=== PATIENT | female | born 1965 | race Caucasian/White ===

== ENCOUNTER 2018-05-22 18:37 | Inpatient (IN) | END 2018-05-27 13:20 | disposition home or self-care (01) | DRG 742 ==

== ENCOUNTER 2018-07-28 12:29 | Emergency (ER) | END 2018-07-28 16:40 | disposition home or self-care (01) ==

== ENCOUNTER 2018-08-11 14:55 | Emergency (ER) | payer OTHER ==
[~2018-08-11] VITALS: Ht 162.6 cm; Wt 67.9 kg
[~2018-08-11 14:55] MED LIST: CEPH-443 PO; FER325 PO; SULF1TAB31 PO
[2018-08-11 15:02] VITALS: BP 135/63; PULSE 94; RESP 20; Ht 162.6 cm; Wt 67.9 kg
--- NOTE | 2018-08-11 16:05 | ERD ---
ER Documentation Chief Complaint Chief Complaint painful non healing wounds x 1 month - pending referral to specialist HPI 52-year-old female with history of anemia, presents to the emergency department, complaining of worsening of generalized blistering rash for 1 month. The patient is waiting for a referral. The patient denies fevers, no chills. No treatment attempted at this time. ROS All systems reviewed and are negative except as per history of present illness. Medications Home Meds Active Scripts Morphine Sulfate* (Ms Contin*) 15 Mg Tablet.sa, 15 MG PO Q12, #10 TAB Prov:AUNDREA MILLS MD 08/11/18 Prednisone* (Prednisone*) 20 Mg Tab, 60 MG PO DAILY for 5 Days, TAB Prov:AUNDREA MILLS MD 08/11/18 Sulfamethoxazole/Trimethoprim* (Bactrim Ds* Tablet) 1 Each Tablet, 1 TAB PO BID for skin infection for 7 Days, #14 TAB Prov:MAO BAILEY DO 07/28/18 Cephalexin* (Keflex*) 500 Mg Capsule, 500 MG PO Q8 for skin infection for 7 Days, #21 CAP Prov:MAO BAILEY DO 07/28/18 Ferrous Sulfate* (Ferrous Sulfate*) 325 Mg Tabec, 325 MG PO BID for 30 Days, #90 TAB 5 Refills Prov:TATIANA MARI MD 05/27/18 Allergies Allergies: Coded Allergies: No Known Allergy (Verified , 08/11/18) PMhx/Soc 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 Neck: Full range of motion. No meningismus. Resp: Clear to auscultation bilaterally Cardio: Regular rate and rhythm, no murmurs Abd: Soft, non tender, non distended. Normal bowel sounds Skin: Multiple tenths bulla on an erythematous base, with some areas of erosion with yellowish crust involving the oral mucosa, upper extremities, trunk and back. Back: No midline or flank tenderness Ext: No cyanosis, or edema Neur: Awake and alert Psych: Normal Mood and Affect Results 24 hrs Current Medications Medications Dose Sig/Pako Start Time Status Last (Trade) Ordered Route PRN Stop Time Admin Dose Reason Admin 10 mg ONCE ONCE 08/11/18 DC 08/11/18 Dexamethasone IV 16:30 16:43 (Decadron) 08/11/18 16:37 Morphine 10 mg ONCE ONCE 08/11/18 DC 08/11/18 Sulfate PO 16:30 16:43 (morphine) 08/11/18 16:37 Procedures/MDM Vital signs stable, Differential diagnosis include but not limited to: Impetigo, tinea, psoriasis, heat rash, contact dermatitis, viral exanthema, seborrheic dermatitis, scabies, acute allergic reaction, medication side effect. Physical examination and clinical presentation consistent most likely with bullous pemphigoid. Clinical impression discussed with the patient who agree with management. The patient is stable to be treated outpatient and will be discharged home. Some side effects of prescribed medications (skin atrophy, nausea, vomiting, diarrhea, interactions with other medications) were reviewed. The patient needs a follow up with the primary care provider in the next 48h. If symptoms persist, worsen or new symptoms develop, then patient should return to the ED immediately. Instructions explained and given directly by me with acknowledgment and demonstrated understanding. Disclaimer: Inadvertent spelling and grammatical errors are likely due to EHR/dictation software use and do not reflect on the overall quality of patient care. Also, please note that the electronic time recorded on this note does not necessarily reflect the actual time of the patient encounter. Departure Diagnosis: Primary Impression: Bullous pemphigoid Condition: Stable Additional Instructions: Thank you very much for allowing us to participate in your care. Your health and safety is our top priority at [facility]. Call your primary care doctor TOMORROW for an appointment during the next 2-4 days and bring all the information and medications prescribed. Have prescriptions filled and follow precisely the directions on the label. If the symptoms get worse and your provider is unavailable, return to the Emergency Department immediately. AUNDREA MILLS MD Aug 11, 2018 16:05
[2018-08-11] MEDS ORDERED: morphine LIQ (10 MG/5 ML) CUP PO ONE (16:30)
[2018-08-11] MEDS ORDERED: DEXAMETHASONE 10 MG/ML 1 ML INJ IV ONE (16:30)
[2018-08-11] MEDS ORDERED: PRED20TA PO (17:14)
[2018-08-11] MEDS ORDERED: MORP15TA92 PO (17:16)
== END 2018-08-11 17:29 | disposition home or self-care (01) ==
LOC: FTE 14:55
DX: L12.0 Bullous pemphigoid (principal); J45.909 Unspecified asthma, uncomplicated
CPT/HCPCS: 36415; 96374; 99284; J1100

== ENCOUNTER 2018-08-18 12:46 | Emergency (ER) | payer OTHER ==
[~2018-08-18] VITALS: Wt 68.3 kg
[~2018-08-18 12:46] MED LIST changes: +MORP15TA92 PO; +PRED20TA PO
--- NOTE | 2018-08-18 14:30 | ERD ---
ER Documentation Chief Complaint Chief Complaint SKIN BLISTERS HPI The patient is a 52-year-old female, presenting to the ER because of worsening chronic skin Daisy for the last 2 months, now complains of skin lesion inside her mouth. She was seen in the ER about 7 days ago, treated with prednisone for possible bullous pemphigus and advised her to follow-up with her manager beverage. She has not been able to see a manager beverage, seen by her physician today who sent her to the ER for further evaluation. She denies fever, chills, neck pain, chest pain, dyspnea, abdominal pain, vomiting. She does not smoke, drinks socially Past medical history: Asthma, anemia Past surgical history: Abdominal tumor, details unclear ROS All systems reviewed and are negative except as per history of present illness. Medications Home Meds Active Scripts Azithromycin* (Zithromax*) 250 Mg Tablet, 250 MG PO .ZPACK DIRECTED, #6 TAB TAKE 500 MG (2 TABS) THE FIRST DAY THEN 250 MG (1 TAB) DAYS 2-5 Prov:MAO MIRANDA MD 08/18/18 Amoxicillin/Potassium Clav (Amox-Clav 875-125 mg Tablet) 875-125 mg Tab, 1 TAB PO BID for 10 Days, #20 TAB Prov:MAO MIRANDA MD 08/18/18 Prednisone* (Prednisone*) 20 Mg Tab, 60 MG PO DAILY for 7 Days, TAB Prov:MAO MIRANDA MD 08/18/18 Discontinued Scripts Morphine Sulfate* (Ms Contin*) 15 Mg Tablet.sa, 15 MG PO Q12, #10 TAB Prov:AUNDREA MILLS MD 08/11/18 Prednisone* (Prednisone*) 20 Mg Tab, 60 MG PO DAILY for 5 Days, TAB Prov:AUNDREA MILLS MD 08/11/18 Sulfamethoxazole/Trimethoprim* (Bactrim Ds* Tablet) 1 Each Tablet, 1 TAB PO BID for skin infection for 7 Days, #14 TAB Prov:MAO BAILEY DO 07/28/18 Cephalexin* (Keflex*) 500 Mg Capsule, 500 MG PO Q8 for skin infection for 7 Days, #21 CAP Prov:MAO BAILEY DO 07/28/18 Ferrous Sulfate* (Ferrous Sulfate*) 325 Mg Tabec, 325 MG PO BID for 30 Days, #90 TAB 5 Refills Prov:TATIANA WEEKS MD 05/27/18 Allergies Allergies: Coded Allergies: No Known Allergy (Verified , 08/18/18) PMhx/Soc History of Surgery: 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 Head: Atraumatic. Eyes: Normal Conjunctiva. ENT: Normal External Ears, Nose and Mouth.Oral mucosa with skin lesions Neck: Full range of motion. No meningismus. Resp: Clear to auscultation bilaterally. Cardio: Regular rate and rhythm. Abd: Soft, non distended, normal bowel sounds, non tender. Skin: Multiple area of eroded blister, eczematous, erythematous, excoriation in the back and the chest. Back: No midline or flank tenderness. Ext: No cyanosis, or edema. Neur: Awake and alert. No focal deficit Psych: Normal Mood and Affect. Result Diagram: 08/18/18 1521 08/18/18 1521 Results 24 hrs Laboratory Tests Test 08/18/18 15:21 08/18/18 15:27 White Blood Count 9.3 10^3/ul Red Blood Count 3.83 10^6/ul Hemoglobin 9.0 g/dl Hematocrit 29.6 % Mean Corpuscular Volume 77.3 fl Mean Corpuscular Hemoglobin 23.5 pg Mean Corpuscular Hemoglobin Concent 30.4 g/dl Red Cell Distribution Width 20.6 % Platelet Count 633 10^3/UL Mean Platelet Volume 8.9 fl Immature Granulocytes % 0.400 % Neutrophils % 78.9 % Lymphocytes % 13.7 % Monocytes % 5.9 % Eosinophils % 0.8 % Basophils % 0.3 % Nucleated Red Blood Cells % 0.2 /100WBC Immature Granulocytes # 0.040 10^3/ul Neutrophils # 7.3 10^3/ul Lymphocytes # 1.3 10^3/ul Monocytes # 0.6 10^3/ul Eosinophils # 0.1 10^3/ul Basophils # 0.0 10^3/ul Nucleated Red Blood Cells # 0.0 10^3/ul Prothrombin Time 11.8 Sec Prothrombin Time Ratio 0.9 INR International Normalized Ratio 0.86 Activated Partial Thromboplast Time 25.4 Sec Sodium Level 137 mmol/L Potassium Level 4.0 mmol/L Chloride Level 99 mmol/L Carbon Dioxide Level 29 mmol/L Anion Gap 9 Blood Urea Nitrogen 17 mg/dl Creatinine 0.39 mg/dl Est Glomerular Filtrat Rate mL/min > 60 mL/min Glucose Level 91 mg/dl Calcium Level 9.2 mg/dl Total Bilirubin 0.1 mg/dl Direct Bilirubin 0.00 mg/dl Indirect Bilirubin 0.1 mg/dl Aspartate Amino Transf (AST/SGOT) 28 IU/L Alanine Aminotransferase (ALT/SGPT) 29 IU/L Alkaline Phosphatase 75 IU/L Troponin I < 0.012 ng/ml Total Protein 7.3 g/dl Albumin 3.8 g/dl Globulin 3.50 g/dl Albumin/Globulin Ratio 1.08 POC Venous Lactate 1.2 mmol/L Current Medications Medications Dose Sig/Pako Start Time Status Last (Trade) Ordered Route PRN Stop Time Admin Dose Reason Admin Ceftriaxone 50 ml @ ONCE ONCE 08/18/18 DC 08/18/18 Sodium 100 mls/hr IVPB 17:00 08/18/18 16:49 17:29 Azithromycin 250 ml @ ONCE ONCE 08/18/18 DC 08/18/18 250 mls/hr IVPB 17:00 08/18/18 17:14 17:59 Procedures/MDM [place] [id number] Radiology Main Line: [phone] DIAGNOSTIC IMAGING REPORT Patient: TAM GRIFFITHS : 1965 Age: 52 Sex: F MR #: [id number] DOS: 08/18/18 1459 Ordering MD: MAO MIRANDA MD Location: E/R Room/Bed: PROCEDURE: XR Chest. CLINICAL INDICATION: chest pain TECHNIQUE: Single frontal view of the chest was obtained COMPARISON: CR PORTABLE CHEST 12/30/2007 FINDINGS: The heart and mediastinum are within normal limits. There is a patchy left lower lobe infiltrate. There is no pleural effusion or pneumothorax. RPTAT: AA IMPRESSION: Patchy left lower lobe infiltrate. .Hasmukh Friedman MD, MD Date Time Electronically viewed and signed by .Hasmukh Friedman MD, MD on 08/18/2018 15:34 .S/ CC: MAO MIRANDA MD [id number] EKG: Read by emergency physician Rate/Rhythm: Normal Sinus Rhythm 69 beats/min QRS, ST, T-waves: No ST elevation, no T inversion, low voltage, 1 AVB, septal Qs Impression: Abnormal EKG Consultation: I discussed the patient with the on-call hospitalist Dr Weeks at 4:40 pm, who declined the patient I discussed the patient with the local manager beverage Dr. Vázquez at 5:05 PM, who was made aware of the patient condition with concurrent pneumonia and my concern for pemphigus vulgaris because of the oral mucosa involvement. He recommended discharging her with prednisone 60 mg daily and he will be able to see her in the office tomorrow morning for skin biopsy and definitive tx. MEDICAL MAKING DECISION: The patient is a 52-year-old female, presenting with probable pemphigus vulgaris, pneumonia. She was treated with Zithromax IV and Rocephin IV for acute pneumonia with good response, is stable for outpatient follow-up The differential diagnoses considered include but are not limited to pneumonia, pemphigus vulgaris, bullous pemphigoid, cellulitis, abscess, skin Otoniel syndrome Departure Diagnosis: Primary Impression: Pemphigus vulgaris Additional Impressions: PNA (pneumonia) Anemia Condition: Good Comments She was discharged with prednisone, Augmentin, Zithromax and advised to go up with manager beverage Dr. Vázquez in the morning, return if any concern MAO MIRANDA MD Aug 18, 2018 14:30
[2018-08-18] MEDS ORDERED: CEFTRIAXONE 1 GM/50 ML (PMX) 50 ML IVPB ONE (17:00)
[2018-08-18] MEDS ORDERED: AZITHROMYCIN 500MG/NS (PMX) 250 ML IVPB ONE (17:00)
[2018-08-18] MEDS ORDERED: AMOX1TAB10 PO (17:23)
[2018-08-18] MEDS ORDERED: PRED20TA PO (17:23)
[2018-08-18] MEDS ORDERED: AZIT250T PO (17:24)
[2018-08-18 17:30] VITALS: BP 122/84; PULSE 75; RESP 18
== END 2018-08-18 18:36 | disposition home or self-care (01) ==
LOC: E/R 12:46
DX: L10.0 Pemphigus vulgaris (principal); J18.9 Pneumonia, unspecified organism; D64.9 Anemia, unspecified; J45.909 Unspecified asthma, uncomplicated; R07.9 Chest pain, unspecified; Z85.028 Personal history of other malignant neoplasm of stomach; Z85.43 Personal history of malignant neoplasm of ovary
CPT/HCPCS: 36415; 71045; 80053; 83605; 84484; 85025; 85610; 85730; 87040; 93005; 96374; 96375; 99285; J0456; J0696

== ENCOUNTER 2018-10-27 16:20 | Emergency (ER) | payer SELFPAY ==
[~2018-10-27] VITALS: Ht 167.6 cm; Wt 71.9 kg
[~2018-10-27 16:20] MED LIST changes: +AMOX1TAB10 PO; +AZIT250T PO; -CEPH-443 PO; -FER325 PO; -MORP15TA92 PO; -SULF1TAB31 PO
[2018-10-27 16:31] VITALS: Ht 167.6 cm; Wt 71.9 kg
== END 2018-10-27 18:43 | disposition left against medical advice (07) ==
LOC: FTE 16:20
DX: Z53.21 Procedure and treatment not carried out due to patient leaving prior to being seen by health care provider (principal)

== ENCOUNTER 2018-11-05 07:49 | Emergency (ER) | payer OTHER ==
[~2018-11-05] VITALS: Wt 75.0 kg
[2018-11-05] MEDS ORDERED: FER325 ORAL (09:21)
[2018-11-05] MEDS ORDERED: PRED10TA ORAL (09:21)
[2018-11-05] MEDS ORDERED: PANT40TA4 ORAL (09:21)
[2018-11-05] MEDS ORDERED: MYCO500T3 ORAL (09:21)
[2018-11-05 12:00] VITALS: BP 105/68; PULSE 71; RESP 23
--- NOTE | 2018-11-05 13:20 | ERD ---
ER Documentation Chief Complaint Chief Complaint SEND FOR BLOOD TRANSFUSION HGB 7.5 HPI 53-year-old female referred to the emergency department from her primary care doctor for evaluation of an anemia with low blood counts. Patient had routine blood tests recently demonstrating an anemia with a hemoglobin of less than 7. Patient states that she has no complaints including no significant bleeding. She has a history of menometrorrhagia which is the known cause of her chronic anemia since significant workup has been performed a lready. Currently, she denies any lightheadedness, chest pain, shortness of breath or any other complaints. ROS All systems reviewed and are negative except as per history of present illness. Medications Home Meds Reported Medications Ferrous Sulfate* (Ferrous Sulfate*) 325 Mg Tabec, 1 TAB ORAL BID 11/05/18 Mycophenolate Mofetil* (Mycophenolate Mofetil*) 500 Mg Tablet, 1 TAB ORAL BID 11/05/18 Prednisone* (Prednisone*) 10 Mg Tab, 30 MG ORAL DAILY 11/05/18 Pantoprazole* (Pantoprazole*) 40 Mg Tablet.dr, 1 TAB ORAL DAILY 11/05/18 Discontinued Scripts Azithromycin* (Zithromax*) 250 Mg Tablet, 250 MG PO .ZekePACK DIRECTED, #6 TAB TAKE 500 MG (2 TABS) THE FIRST DAY THEN 250 MG (1 TAB) DAYS 2-5 Prov:MAO MIRANDA MD 08/18/18 Amoxicillin/Potassium Clav (Amox-Clav 875-125 mg Tablet) 875-125 mg Tab, 1 TAB PO BID for 10 Days, #20 TAB Prov:MAO MIRANDA MD 08/18/18 Prednisone* (Prednisone*) 20 Mg Tab, 60 MG PO DAILY for 7 Days, TAB Prov:MAO MRIANDA MD 08/18/18 Allergies Allergies: Coded Allergies: No Known Allergy (Verified , 11/05/18) PMhx/Soc History of Surgery: Yes (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 ,D AND C) Anesthesia Reaction: Yes Hx Neurological Disorder: No Hx Respiratory Disorders: Yes (Asthma) Hx Cardiac Disorders: No Hx Psychiatric Problems: No Hx Miscellaneous Medical Probl: Yes (Bullous Pemphigosa, ANEMIA, FIBROIDS) Hx Alcohol Use: Yes (Ocassionally) Hx Substance Use: Yes Hx Tobacco Use: No Smoking Status: Never smoker Physical Exam Vitals Vital Signs Date Temp Pulse Resp B/P (MAP) Pulse Ox O2 O2 Flow FiO2 Time Delivery Rate 11/05/18 98.0 71 23 105/68 100 Room Air 12:00 (80) 11/05/18 98.2 70 17 101/69 100 Room Air 11:00 (80) 11/05/18 97.7 65 14 118/57 99 Room Air 10:10 (77) 11/05/18 87 18 111/66 99 Room Air 08:41 (81) 11/05/18 98.1 80 18 145/91 99 07:56 (109) Physical Exam GENERAL: The patient is well developed and appropriate for usual state of health in no apparent distress HEENT: Pupils equal, round, and reactive to light. EOMI. There is no scleral icterus. NECK: C-spine is soft and supple, there is no meningismus. There is no cervical lymphadenopathy. LUNGS: Clear to auscultation bilaterally. There are no rales, wheezes or rhonchi. HEART: Regular rate and rhythm, no murmurs, clicks, rubs or gallops. ABDOMEN: Soft, non-tender, non-distended. There are bowel sounds in all four quadrants. No rebound or guarding. EXTREMITIES: There is no peripheral cyanosis or edema. No focal swelling or erythema. NEURO: The patient moves all four extremities with 5/5 strength. Cranial nerves II - XII are intact. Normal gait. Alert and oriented SKIN: There is no apparent rash or petechiae. HEME/LYMPHATIC: There is no evidence of excessive bruising or lymphedema. PSYCHIATRIC: The patient does not appear anxious or depressed. Result Diagram: 11/05/18 0824 11/05/18 0824 Results 24 hrs Laboratory Tests Test 11/05/18 08:24 White Blood Count 10.3 10^3/ul Red Blood Count 3.36 10^6/ul Hemoglobin 6.3 g/dl Hematocrit 24.7 % Mean Corpuscular Volume 73.5 fl Mean Corpuscular Hemoglobin 18.8 pg Mean Corpuscular Hemoglobin Concent 25.5 g/dl Red Cell Distribution Width 21.2 % Platelet Count 456 10^3/UL Mean Platelet Volume 8.8 fl Immature Granulocytes % 0.800 % Neutrophils % % Segmented Neutrophils % (Manual) 71 % Band Neutrophils % (Manual) 1 % Lymphocytes % % Lymphocytes % (Manual) 25 % Monocytes % % Monocytes % (Manual) 1 % Eosinophils % % Eosinophils % (Manual) 2 % Basophils % % Nucleated Red Blood Cells % 0.5 /100WBC Immature Granulocytes # 0.080 10^3/ul Neutrophils # 10^3/ul Neutrophils # (Manual) 7.3 10^3/ul Band Neutrophils # 0.1 10^3/ul Lymphocytes (Manual) 2.5 10^3/ul Lymphocytes # 10^3/ul Monocytes # 10^3/ul Monocytes # (Manual) 0.1 10^3/ul Eosinophils # 10^3/ul Basophils # 10^3/ul Nucleated Red Blood Cells # 10^3/ul Platelet Estimate NORMAL Giant Platelets 1 % Polychromasia 3+ Hypochromasia 3+ Poikilocytosis 1+ Anisocytosis 3+ Microcytosis 3+ Prothrombin Time 11.9 Sec Prothrombin Time Ratio 0.9 INR International Normalized Ratio 0.87 Activated Partial Thromboplast Time 23.2 Sec Sodium Level 142 mmol/L Potassium Level 3.5 mmol/L Chloride Level 105 mmol/L Carbon Dioxide Level 27 mmol/L Anion Gap 10 Blood Urea Nitrogen 21 mg/dl Creatinine 0.48 mg/dl Est Glomerular Filtrat Rate mL/min > 60 mL/min Glucose Level 97 mg/dl Calcium Level 9.0 mg/dl Total Bilirubin 0.2 mg/dl Direct Bilirubin 0.00 mg/dl Indirect Bilirubin 0.2 mg/dl Aspartate Amino Transf (AST/SGOT) 23 IU/L Alanine Aminotransferase (ALT/SGPT) 25 IU/L Alkaline Phosphatase 47 IU/L Total Protein 6.8 g/dl Albumin 3.9 g/dl Globulin 2.90 g/dl Albumin/Globulin Ratio 1.34 Procedures/MDM Patient was taken to a room, seen and evaluated. Comfort measures were initiated. Diagnostic tests were ordered and reviewed. 3 LEAD RHYTHM STRIP: Normal sinus rhythm without ectopy REEVALUATION: 1315: After blood was transfused, patient was reevaluated. She appeared clinically comfortable and stable and seemed appropriate for outpatient care. MEDICAL DECISION MAKIN-year-old female with a history of anemia secondary to chronic blood loss presents the emergency department for a blood transfusion. At this time she shows no evidence of endorgan dysfunction related to the blood loss. She appears to be otherwise clinically stable and nontoxic and appropriate for outpatient care Departure Diagnosis: Primary Impression: Anemia Condition: Stable Patient Instructions: Anemia Additional Instructions: Please follow up with your doctor. Return for any problems or concerns VÍCTOR BYRNES Nov 05, 2018 13:20
== END 2018-11-05 13:35 | disposition home or self-care (01) ==
LOC: E/R 07:49
DX: D64.9 Anemia, unspecified (principal); J45.909 Unspecified asthma, uncomplicated
CPT/HCPCS: 36415; 36430; 80053; 85025; 85610; 85730; 86850; 86900; 86901; 86920; 99285; P9016